=== PATIENT | female | born 1980 | race Caucasian/White ===

== ENCOUNTER 2017-07-10 06:10 | Emergency (ER) | payer OTHER ==
[~2017-07-10] VITALS: Ht 170.2 cm; Wt 49.3 kg
[~2017-07-10 06:10] MED LIST: CLR10 PO
[2017-07-10 06:13] VITALS: TEMP 36.4; Ht 170.2 cm; Wt 49.3 kg
[2017-07-10] MEDS ORDERED: AZITHROMYCIN 250 MG TAB PO STA (07:08)
[2017-07-10] MEDS ORDERED: ALBUTEROL 0.5% NEB SOLN 2.5 MG/0.5 ML VIAL INH STA (07:08)
[2017-07-10] MEDS ORDERED: ALBUTEROL HFA 8 GM INHALER INH STA (07:08)
[2017-07-10] MEDS ORDERED: HYDROCODONE/HOMATROPINE SYRUP 5MG/1.5MG 5ML UDP PO STA (07:08)
[2017-07-10 07:24] VITALS: BP 116/75; PULSE 89; O2SAT 96
--- NOTE | 2017-07-10 07:24 | DIAGNOSTIC IMAGING REPORT ---
CHEST ONE VIEW PORTABLE CLINICAL HISTORY: Cough. COMPARISON STUDY: No previous studies for comparison. FINDINGS: The cardiac and mediastinal contours are normal. There is no evidence of focal pulmonary consolidation. There is no evidence of failure. No pleural effusions are visualized.[The patient appears mildly hyperexpanded. IMPRESSION: No active disease in the chest. Electronically signed by: Asad Goodwin M.D. 07/10/2017 7:23 AM Dictated Date/Time: 07/10/2017 7:22 AM
[2017-07-10] MEDS ORDERED: HYDR5SYP11 PO (07:33)
[2017-07-10] MEDS ORDERED: AZIT-60 PO (07:33)
--- NOTE | 2017-07-10 08:02 | EMERGENCY ROOM VISIT NOTE ---
History First contact with patient: 07:03 Chief Complaint: COUGH Stated Complaint: COUGH,SORE RIBS,DRY HEAVES History of Present Illness The patient is a 37 year old female who presents to the Emergency Room with complaints of cough. The patient has been coughing for the past 3 days. She has not been sleep due to the cough. The patient has been taking Robitussin with some improvement in the cough however when this and the cough comes back. Patient has not had any issues like this in the past. Review of Systems See HPI for pertinent positives & negatives. A total of 10 systems reviewed and were otherwise negative. Past Medical/Surgical History Medical Problems: (1) Attn Defic Nonhyperact Family History Diabetes Heart disease High blood pressure Cancer Gallbladder disease Social History Smoking Status: Never Smoker Smokeless Tobacco Use: No Alcohol Use: none Drug Use: none Marital Status: single Housing Status: lives with family Occupation Status: unemployed Current/Historical Medications Scheduled Azithromycin (Zithromax), 250 MG PO DAILY Scheduled PRN Hydrocodone W/ Homatropine (Hycodan 5/1.5MG 5 Ml), 5 ML PO HS PRN for Cough Physical Exam Vital Signs Date Time Temp Pulse Resp B/P (MAP) Pulse Ox O2 Delivery O2 Flow Rate FiO2 07/10/17 07:24 89 20 116/75 96 Room Air 07/10/17 06:13 36.4 109 20 129/81 97 Room Air Physical Exam GENERAL: Patient is a healthy-appearing well-nourished HEAD: Normocephalic atraumatic EYES: Ocular movements intact pupils equal and react to light OROPHARYNX mucous membranes are moist no exudates present no erythema or edema present NECK: Supple no nuchal rigidity CHEST: Good equal expansion, tender bilaterally to the chest wall LUNGS: Clear and equal to auscultation CARDIAC: Normal S1 and S2 ABDOMEN: Soft nontender no guarding BACK: No CVA tenderness EXTREMITIES: No pain upon palpation normal muscle strength in all groups no clubbing cyanosis or edema NEURO: Patient is following commands is answering questions appropriately. Alert and oriented x3 Cranial Nerves 2-12 grossly intact Medical Decision & Procedures ER Provider Diagnostic Interpretation: CHEST ONE VIEW PORTABLE CLINICAL HISTORY: Cough. COMPARISON STUDY: No previous studies for comparison. FINDINGS: The cardiac and mediastinal contours are normal. There is no evidence of focal pulmonary consolidation. There is no evidence of failure. No pleural effusions are visualized.[The patient appears mildly hyperexpanded. IMPRESSION: No active disease in the chest. Electronically signed by: Asad Goodwin M.D. 07/10/2017 7:23 AM Dictated Date/Time: 07/10/2017 7:22 AM Laboratory Results Test 07/10/17 07:25 Medications Administered Medications (Trade) Dose Ordered Sig/[place] Route Start Time Stop Time Status Last Admin Dose Admin Albuterol (Ventolin Hfa Inhaler) 2 puffs NOW STAT INH 07/10/17 07:08 07/10/17 07:13 DC 07/10/17 07:24 2 PUFFS Albuterol Sulfate (Ventolin 0.5% 2.5MG/0.5ML Neb) 2.5 mg NOW STAT INH 07/10/17 07:08 07/10/17 07:13 DC 07/10/17 07:24 2.5 MG Azithromycin (Zithromax Tab) 500 mg NOW STAT PO 07/10/17 07:08 07/10/17 07:13 DC 07/10/17 07:24 500 MG Hydrocodone Bit/ Homatropine Methylb (Hycodan Syrup) 5 ml NOW STAT PO 07/10/17 07:08 07/10/17 07:13 DC 07/10/17 07:24 5 ML ECG Indication: chest pain Rate (beats per minute): 87 Rhythm: normal sinus Findings: no acute ischemic change, no ectopy Medical Decision This is a 37-year-old who presents emergency Department with cough. The patient is healthy in appearance and is not tachycardic. She is also afebrile. Based on these findings I felt we can be conservatively treated the patient. She was given a breathing treatment in the emergency department. Repeat examination revealed much improvement patient's symptoms. I will place the patient on azithromycin and sent her home with Vicodin as well as an albuterol inhaler used twice every 6 hours. Patient and mother were in agreement with the treatment plan. Impression Primary Impression: Acute bronchitis Departure Information Dispostion Home / Self-Care Condition GOOD Prescriptions Hydrocodone W/ Homatropine (HYCODAN 5/1.5MG 5 ML) 1 Syp Syp 5 ML PO HS Y for Cough, #120 ML Prov: Saroj Peck MD 07/10/17 Azithromycin (ZITHROMAX) 250 Mg Tab 250 MG PO DAILY, #4 TAB Prov: Saroj Peck MD 07/10/17 Referrals RV. Zuniga MD (PCP) Forms HOME CARE DOCUMENTATION FORM, School Instructions, Work Instructions, IMPORTANT VISIT INFORMATION Patient Instructions Bronchitis Acute Dc, My [facility] Additional Instructions Use inhaler twice every 6 hours You received narcotic or benzodiazepene medication while in the emergency room today. This is an addictive medication that may cause drowziness as well as constipation. Do not drive, operate heavy machinery, or drink alcohol under the influence of this medication. You have been examined and treated today on an emergency basis only. This is not a substitute for, or an effort to provide, complete comprehensive medical care. It is impossible to recognize and treat all injuries or illnesses in a single emergency department visit. It is therefore important that you follow up closely with Dr Landaverde. Call as soon as possible for an appointment. Thank you for your time and consideration. I look forward to speaking with you again soon. Please don't hesitate to call us if you have any questions. Problem Qualifiers Primary Impression: Acute bronchitis Bronchitis organism: unspecified organism Qualified Codes: J20.9 - Acute bronchitis, unspecified
[2017-07-10 09:42] LABS: INFLUENZA A PCR Neg for Influ A (NEG); INFLUENZA B PCR Neg for Influ B (NEG)
== END 2017-07-10 07:50 | disposition home or self-care (01) ==
LOC: C.EDB 06:11 → C.EDA 07:50
DX: J20.9 Acute bronchitis, unspecified (principal); Z83.3 Family history of diabetes mellitus; Z82.49 Family history of ischemic heart disease and other diseases of the circulatory system; Z80.9 Family history of malignant neoplasm, unspecified; Z83.79 Family history of other diseases of the digestive system

== ENCOUNTER → 2018-02-26 | Outpatient (CLI) | payer OTHER ==
[~2018-02-26] MED LIST changes: -CLR10 PO; +HYDR5SYP11 PO
[2018-02-26 14:36] LABS: BASO % 0.3 %; BASO ABS # 0.02 K/uL (0-0.2); EOS % 0.7 %; EOS ABS # 0.05 K/uL (0-0.5); HEMATOCRIT 41.2 % (37-47); HEMOGLOBIN 13.9 g/dL (12.0-16.0); IG# 0.01 K/uL (0.00-0.02); LYMPH % 19.9 %; LYMPH ABS # 1.38 K/uL (1.2-3.4); MEAN CELL VOLUME 88.8 fL (80-100); MEAN CORPUSCULAR HGB CONC 33.7 g/dl (32-36); MEAN PLATELET VOLUME 9.5 fL (7.4-10.4); MONO % 9.7 %; MONO ABS # 0.67 K/uL (0.11-0.59); NEUT % 69.3 %; PLATELET COUNT 346 K/uL (130-400); RED CELL DISTRIBUTION WIDTH CV 13.2 % (11.5-14.5); RED CELL DISTRIBUTION WIDTH SD 42.7 fL (36.4-46.3); WHITE BLOOD COUNT 6.93 K/uL (4.8-10.8)
[2018-02-26 15:14] LABS: ALKALINE PHOSPHATASE 67 U/L (45-117); ALT/SGPT 14 U/L (12-78); AST/SGOT 14 U/L (15-37); BLOOD UREA NITROGEN 7 mg/dl (7-18); CARBON DIOXIDE 27 mmol/L (21-32); CHOLESTEROL 133 mg/dl (0-200); GLUCOSE 88 mg/dl (70-99); LDL CHOLESTEROL CALCULATED 55 mg/dl; POTASSIUM 3.8 mmol/L (3.5-5.1); SODIUM 140 mmol/L (136-145); TOTAL PROTEIN 8.7 gm/dl (6.4-8.2)
== END | disposition home or self-care (01) ==
LOC: C.LAB1850 13:53
PROVIDERS: ATTEND Internal Medicine
DX: Z00.00 Encounter for general adult medical examination without abnormal findings (principal); F98.8 Other specified behavioral and emotional disorders with onset usually occurring in childhood and adolescence; R63.6 Underweight; Z13.220 Encounter for screening for lipoid disorders